=== PATIENT | female | born 1965 | race Caucasian/White ===

== ENCOUNTER 2025-06-24 08:34 | Emergency (ER) | payer OTHER ==
[~2025-06-24] VITALS: Ht 167.6 cm; Wt 68.0 kg
[~2025-06-24 08:34] MED LIST: Benadryl 50 mg50 MG PO; CEPH500 PO; Diflucan100 MG PO; PERM5TC TOP; Pepcid20 MG PO; Prednisone10 MG PO
[2025-06-24 09:24] VITALS: BP 126/89
[2025-06-24] MEDS ORDERED: CLOBETASOL EMOL15 G1 TOP (09:34)
== END 2025-06-24 09:40 | disposition home or self-care (01) ==
LOC: ER 08:34
DX: L23.7 Allergic contact dermatitis due to plants, except food (principal); Z79.899 Other long term (current) drug therapy
CPT/HCPCS: 99283